=== PATIENT | female | born 1960 | race Hispanic/Latino ===

== ENCOUNTER → 2018-07-02 | Outpatient (REF) | payer OTHER ==
[~2018-07-02] MED LIST: AMBIEN5 MG PO; CEPHALEXIN500 MG OR; CIPROFLOXACN500 MG PO; CLARITIN10 M2 OR; DEPO-MEDROL80 MG/ML IM; FLONASE NASAL50 MCG; IBUPROFEN800 MG PO; IRON325 MG PO; KEFLEX500 MG PO; NAPROXEN500 MG PO; POLYTRIM OU; SOMA250 MG PO; ULTRAM50 M1 PO; WELLBUTRIN150 MG PO
[2018-07-02 11:21] LABS: HEMATOCRIT 35.2 % (37.0-47.0); HEMOGLOBIN 11.9 g/dl (12.0-16.0); MEAN CELL VOLUME 76.4 fL CALC (80.0-100.0); MEAN CORPUSCULAR HGB 25.8 pG CALC (26.0-32.0); MEAN CORPUSCULAR HGB CONC 33.8 g/L CALC (32.0-36.0); RED BLOOD COUNT 4.61 mill/uL (4.20-5.60); RED CELL DISTRI WIDTH 14.4 % (11.5-15.5)
[2018-07-02 11:28] LABS: MAGNESIUM 1.9 mg/dL (1.6-2.3)
== END | disposition home or self-care (01) | DRG 305 ==
LOC: LAB 09:55
PROVIDERS: ATTEND Internal Medicine
DX: I10 Essential (primary) hypertension (principal); R53.83 Other fatigue